=== PATIENT | female | born 1985 | race African-American/Black ===

== ENCOUNTER 2016-06-05 12:12 | Emergency (ER) | payer OTHER ==
[2016-06-05 12:40] LABS: URINE CULTURE PL NEEDED? NO; URINE SOURCE CLEAN CATCH
[2016-06-05 12:47] LABS: MANUAL DIFF NEEDED? NO
[2016-06-05 12:49] LABS: BASO% 0.1 % (0.0-0.8); EOS# 0.12 X1000 (0.0-0.7); EOS% 1.3 % (0.0-10.0); HEMATOCRIT 31.1 % (37.0-47.0); IMM GRAN# 0.02 X1000 (0.0-0.04); IMM GRAN% 0.2 % (0.0-0.5); LYMPH# 2.28 X1000 (1.2-3.4); LYMPH% 25.2 % (20.5-51.1); MCH 30.8 PG (27-31); MCHC 35.4 g/dL (33-37); MCV 87.1 FL (81-99); MONO# 0.67 X1000 (0.11-0.59); MONO% 7.4 % (1.7-9.3); MPV 10.7 FL (7.4-10.4); NEUT% 65.8 % (42.2-75.2); PLT 235 X1000 (130-400); RBC 3.57 XMIL (4.2-5.4)
[2016-06-05 12:51] LABS: BILIRUBIN URINE NEGATIVE (NEGATIVE); BLOOD URINE TRACE (NEGATIVE); CLARITY CLEAR (CLEAR); COLOR YELLOW; GLUCOSE URINE NEGATIVE (NEGATIVE); LEUKOCYTES URINE 1+ (NEGATIVE); NITRITE URINE NEGATIVE (NEGATIVE); PROTEIN URINE TRACE mg/dL (NEGATIVE); SP GRAVITY URINE 1.005; UROBILINOGEN URINE NORMAL
[2016-06-05 12:53] LABS: URINE EPITHELIAL CELLS >10 /HPF (<10); URINE RBC <10 /HPF (<10); URINE WBC <10 /HPF (<10)
[2016-06-05] MEDS ORDERED: ROCEPHIN IM ONE (14:28)
[2016-06-05] MEDS ORDERED: XYLOCAINE-MPF 1% INJ ONE (14:28)
[2016-06-05] MEDS ORDERED: ZITHROMAX PO ONE (14:28)
--- NOTE | 2016-06-05 14:28 | PROVIDER DOCUMENTATION ---
HPI-Female /OB/Breast <Mike Hobbs - Last Filed: 06/05/16 14:30> - General Source: reports: patient - History of Present Illness-Female /OB Does patient report she is ?: Yes Location of complaint: reports: suprapubic Radiation: reports: none Quality of Pain: reports: aching Severity in ED: reports: mild Onset/Duration: reports: unsure Timing: reports: still present Context/Activities at Onset: reports: light activity Vaginal Symptoms: reports: discharge Vaginal Bleeding Amount: None Urinary Symptoms: reports: no symptoms Related Symptoms: reports: no symptoms Leakage of Fluid: none Sexual intercourse history: reports: Single Partner Contraception: reports: none Modifying Factors: improves with: nothing Associated Symptoms: reports: denies symptoms Similar Symptoms Previously?: Yes Recently seen or treated by another doctor?: No <Pricila Malhotra - Last Filed: 06/05/16 14:39> - General Chief Complaint: Female Stated Complaint: 8 WEEKS PREG/ABD PX Time Seen by Provider: 06/05/16 13:23 Allergies/Adverse Reactions: Patient Allergies Allergy/AdvReac Type Severity Reaction Status Date / Time No Known Allergies Allergy Verified 03/17/14 12:44 Home Medications: Home Medication List Medication Instructions Recorded Confirmed Last Taken Type Methocarbamol [Robaxin] 500 mg PO BID #20 tablet 07/22/15 Unknown Rx Naproxen 500 mg PO BID #20 tablet 07/22/15 Unknown Rx Quetiapine Fumarate [Seroquel] 100 mg PO HS 07/22/15 07/22/15 Unknown History Metronidazole [Flagyl] 500 mg PO BID #14 tablet 06/05/16 Unknown Rx Pnv with Ca,No.72/Iron/FA [Pnv 1 each PO DAILY #30 tablet 06/05/16 Unknown Rx Plus Multivit Tab] - History of Present Illness-Female /OB Nature of Presenting Problem: Pt is 31 y /o F presents to the ED with vaginal irritation. Pt states hx of bacterial vaginosis. Pt states she is 9 weeks . Pt denies vaginal bleeding. (Pricila Malhotra) Review of Systems - Adult - REVIEW OF SYSTEMS - ADULT Constitutional: denies: chills, fever Eyes: denies: blurred vision, double vision Ears, Nose, Mouth & Throat: denies: ear pain, nose pain, throat pain Cardiovascular: reports: irregular heart rate (tachy). denies: chest pain, heart murmur Respiratory: denies: cough, shortness of breath, wheezing Gastrointestinal: denies: abdominal pain, diarrhea, nausea, vomiting Genitourinary: reports: discharge (white). denies: dysuria, hematuria Musculoskeletal: denies: bone pain, joint pain, neck pain Integumentary: denies: hives, itching Neurological: denies: dizziness/vertigo, headache/migraines Psychiatric: reports: no symptoms reported Endocrine: reports: no symptoms reported Hematologic/Lymphatic: reports: no symptoms reported Allergic/Immunologic: reports: no symptoms reported All Other Systems: Reviewed and Negative <Pricila Malhotra - Last Filed: 06/05/16 14:39> Past History - Adult - PAST MEDICAL HISTORY-ADULT Major Childhood Illnesses: reports: denies history Cardiovascular: reports: denies history Respiratory: reports: denies history Gastrointestinal: reports: denies history Obstetrical/Gynecological: reports: denies history Genitourinary: reports: denies history Musculoskeletal: reports: denies history Neurological: reports: denies history Psychiatric: reports: anxiety, depression Endocrine/Immune: reports: denies history Other Conditions: reports: denies history - PRIOR SURGERIES/PROCEDURES Surgical/Procedure History: reports: none - IMMUNIZATION STATUS Childhood Immunizations: See Nurse Assessment Flu Vaccine: See Nurse Assessment - FAMILY HISTORY Family History: reviewed, not pertinent <Mike Hobbs - Last Filed: 06/05/16 14:30> - PAST MEDICAL HISTORY-ADULT Review of Records: reports: Nursing Assessment Review, Medications Reviewed, Social history reviewed & non-contributory. Major Childhood Illnesses: reports: denies history Cardiovascular: reports: denies history Respiratory: reports: denies history Gastrointestinal: reports: denies history Obstetrical/Gynecological: reports: denies history Genitourinary: reports: denies history Musculoskeletal: reports: denies history Neurological: reports: denies history Psychiatric: reports: depression Endocrine/Immune: reports: denies history Other Conditions: reports: denies history - PRIOR SURGERIES/PROCEDURES Surgical/Procedure History: reports: reviewed, not pertinent - IMMUNIZATION STATUS Childhood Immunizations: See Nurse Assessment Flu Vaccine: See Nurse Assessment - FAMILY HISTORY Family History: reviewed, not pertinent - SOCIAL HISTORY Smoking: quit less than 1 year, cigarettes Substance Use: denies Living Situation: family <RoscoePricila - Last Filed: 06/05/16 14:39> Physical Exam-General - PHYSICAL EXAM-ADULT Initial Vital Signs Reviewed: Yes - CONSTITUTIONAL General Appearance: appears well, alert, no apparent distress - EYES Eyes: PERRL/EOMI, pink conjunctivae, fundi clear, no AV nicking - HEAD, EARS, NOSE, MOUTH & THROAT HENMT: normocephalic/atraumatic, moist mucous membranes, normal ENT inspection, TMs normal, pharynx normal - NECK Neck: non-tender, full range of motion, supple, normal inspection - RESPIRATORY Respiratory: chest non-tender, lungs clear, normal breath sounds, no pleuratic chest pain, no respiratory distress, no accessory muscle use - CARDIOVASCULAR Cardiovascular: normal peripheral pulses, no edema, no gallop, no JVD, no murmur , tachycardia - GASTROINTESTINAL (ABDOMEN) Abdominal Exam: normal bowel sounds, soft, no organomegaly, no pulsatile mass, tenderness (suprapubic) - GENITOURINARY Female Genitalia/Pelvic Exam: external exam normal, discharge (white) - LYMPHATIC Lymphatic: no adenopathy - MUSCULOSKELETAL Back Exam: normal inspection, no CVA tenderness, no vertebral tenderness Extremity: normal range of motion, non-tender, normal gait, normal inspection, no pedal edema, no calf tenderness, normal capillary refill, pelvis stable - SKIN Integumentary: normal color, normal turgor, warm/dry - NEUROLOGIC Neurologic: butter liquefier II-XII nml as tested, grossly normal, no motor/sensory deficits - PSYCHIATRIC Psych/Mental Status: normal mood/affect, oriented x 3 <Pricila Malhotra - Last Filed: 06/05/16 14:39> Progress <Mike Hobbs - Last Filed: 06/05/16 14:30> - ULTRASOUND (By Radiology) 1 US Study: other (OBS complete < 14 wks) Impression: Abnormal US Results: IUP at 9w3d with FHR = 175 <Pricila Malhotra - Last Filed: 06/05/16 14:39> - PLAN OF CARE/RESULTS Progress/Plan/Lab Results: Laboratory Tests 06/05/16 06/05/16 06/05/16 12:33 12:46 12:46 WBC 9.05 RBC 3.57 L Hgb 11.0 L Hct 31.1 L MCV 87.1 MCH 30.8 MCHC 35.4 RDW Std Deviation 11.6 Plt Count 235 MPV 10.7 H Immature Gran % (Auto) 0.2 Neut % (Auto) 65.8 Lymph % (Auto) 25.2 [place] % (Auto) 7.4 Eos % (Auto) 1.3 Baso % (Auto) 0.1 Immature Gran # (Auto) 0.02 Neut # (Auto) 5.95 Lymph # (Auto) 2.28 [place] # (Auto) 0.67 H Eos # (Auto) 0.12 Baso # (Auto) 0.01 Ser , Semi-Qnt 94124.0 Urine Source CLEAN CATCH Urine Color YELLOW Urine Clarity CLEAR Urine pH 7.0 Ur Specific [place] 1.005 Urine Protein TRACE A Urine Ketones NEGATIVE Urine Blood TRACE Urine Nitrite NEGATIVE Urine Bilirubin NEGATIVE Urine Urobilinogen NORMAL Urine Microscopic RBC <10 Urine WBC 1+ A Urine Microscopic WBC <10 Ur Epithelial Cells >10 A Urine Glucose NEGATIVE ABO/Rh RhIG Candidate? 06/05/16 12:46 WBC RBC Hgb Hct MCV MCH MCHC RDW Std Deviation Plt Count MPV Immature Gran % (Auto) Neut % (Auto) Lymph % (Auto) [place] % (Auto) Eos % (Auto) Baso % (Auto) Immature Gran # (Auto) Neut # (Auto) Lymph # (Auto) [place] # (Auto) Eos # (Auto) Baso # (Auto) Ser , Semi-Qnt Urine Source Urine Color Urine Clarity Urine pH Ur Specific [place] Urine Protein Urine Ketones Urine Blood Urine Nitrite Urine Bilirubin Urine Urobilinogen Urine Microscopic RBC Urine WBC Urine Microscopic WBC Ur Epithelial Cells Urine Glucose ABO/Rh O POSITIVE RhIG Candidate? NO Orders Category Date Time Status US OBS COMPLETE < 14 WKS [US] Stat Exams 06/05/16 12:20 Taken CBC WITH DIFF [HEME] Stat Lab 06/05/16 12:46 Completed CHLAMYDIA AND GC BY PCR URINE [NEOLA] Stat Lab 06/05/16 14:27 Ordered QUANT TEST Stat Lab 06/05/16 12:46 Completed RHOGAM WORKUP [BBK] Stat Lab 06/05/16 12:[address] W/POSS RFLX CULT [URINALYSIS] Stat Lab 06/05/16 12:33 Completed Azithromycin [Zithromax] Med 06/05/16 14:28 Discontinued 1,000 mg PO NOW ONE CefTRIAXONE [Rocephin] Med 06/05/16 14:28 Discontinued 250 mg IM NOW ONE Lidocaine 1% Pf [Xylocaine-Mpf 1%] Med 06/05/16 14:28 Discontinued 5 ml INJ NOW ONE Vital Signs - 24 hr 06/05/16 12:20 Temperature 98.7 F Pulse Rate 106 H Respiratory 20 Rate Blood Pressure 147/085 O2 Sat by Pulse 98 Oximetry (Pricila Malhotra) Departure - Departure Time of Disposition Order: 14:26 Certified Medical Emergency: Emergent <Mike Hobbs - Last Filed: 06/05/16 14:30> - Departure Time of Disposition Order: 14:37 Certified Medical Emergency: Emergent <Pricila Malhotra - Last Filed: 06/05/16 14:39> - Departure DIAGNOSIS: BV (bacterial vaginosis), Trichomonal vaginitis during in first trimester Qualifiers: Weeks of gestation: 9 weeks Qualified Code(s): Z3A.09 - 9 weeks gestation of Disposition: HOME 01 Condition: Good Additional Instructions: Take medication as prescribed. Follow up with your [facility]. Return to the ER for any new or worsening symptoms. ED Follow Up Instructions: You have been treated by a care provider in the Emergency Department. These instructions are being provided to you so you can have an understanding of how to care for yourself upon discharge. Upon discharge from the Emergency Department, you are responsible for making arrangements for follow-up care by a physician of your choice. Take all prescribed medications as directed. Return to the Emergency Department immediately for any new or worsening symptoms. You may call the Physician Referral phone number at [phone] to obtain a list of Physicians who are taking new patients. Prescriptions: Metronidazole [Flagyl] 500 mg PO BID #14 tablet Pnv with Ca,No.72/Iron/FA [Pnv Plus Multivit Tab] 1 each PO DAILY #30 tablet Referrals: None,PCP [Primary Care Provider] - Mike Rhodes MD [STAFF PHYSICIAN] - Attestation - Physician/ NICOLE Attestation Patient care was provided by Advanced Practice Provider:: Yes Advanced Practice Provider:: Mike Hobbs Advanced Practice Provider documentation review:: The Mid-level provider documentation, treatment plan and medical decision making was reviewed by the physician who agrees with all treatment and medical decision making by the MLP. <Mike Hobbs - Last Filed: 06/05/16 14:30> - Scribe Verification/Attestation Scribe:: Pricila Malhotra Acting as Scribe for:: Mike Hobbs Scribe documention review:: This chart was documented by a scribe and accurately reflects the service the provider performed and the decisions made by the provider. <Pricila Malhotra - Last Filed: 06/05/16 14:39> Physician Attestation
--- NOTE | 2016-06-05 14:57 | Diag Imaging Result Document ---
PROCEDURE NAME: US OBS COMPLETE < 14 WKS - 06/05/2016 OB ULTRASOUND FINDINGS: There is an intrauterine with an estimated gestational age of 9 weeks and 3 days plus or minus 5 days. This would correspond with an estimated date of delivery of 01/05/17. heart rate is present, 175 beats per minute. There is a 4-mm cervical cyst. The right ovary measures 3.3 cm in length. The left ovary measures 3.4 cm in length. There is a 1.8 cm complex cyst on the left ovary. No adnexal mass. No free fluid. IMPRESSION: 1. Intrauterine with an estimated gestational age of 9 weeks and 3 days with a heart rate of 175 beats per minute. 2. Small complex left ovarian cyst. A preliminary report was given at 1:48 p.m. MTDD
[2016-06-05 14:59] VITALS: BP 125/89
== END 2016-06-05 15:15 | disposition home or self-care (01) ==
LOC: P.ED 12:12
DX: O98.311 Other infections with a predominantly sexual mode of transmission complicating pregnancy, first trimester (principal); A59.01 Trichomonal vulvovaginitis; O26.891 Other specified pregnancy related conditions, first trimester; R10.9 Unspecified abdominal pain; N89.8 Other specified noninflammatory disorders of vagina; R00.0 Tachycardia, unspecified; R10.819 Abdominal tenderness, unspecified site; O99.341 Other mental disorders complicating pregnancy, first trimester; F41.9 Anxiety disorder, unspecified; F32.9 Major depressive disorder, single episode, unspecified; Z79.899 Other long term (current) drug therapy; Z3A.09 9 weeks gestation of pregnancy
CPT/HCPCS: 36415; 76801; 81001; 81025; 84702; 85025; 86900; 86901; 87491; 87591; 96372; J0696